=== PATIENT | female | born 1960 | race Caucasian/White ===

== ENCOUNTER 2017-02-21 19:30 | Emergency (ER) | payer OTHER ==
[2017-02-21] MEDS ORDERED: HYDROcodone/Acetaminophen 10/325 mg Tablet ONE (19:57)
[2017-02-21] MEDS ORDERED: Ibuprofen 200 MG TAB ONE (19:58)
--- NOTE | 2017-02-21 21:35 | RAD ---
RIGHT FOOT THREE VIEWS 02/21/17 No acute fracture was seen. The proximal phalanx of the fifth toe is underdeveloped and is very smal l. There may be a very tiny calcaneal spur forming. IMPRESSION: No acute finding. POS: HOME
== END 2017-02-21 20:40 | disposition home or self-care (01) ==
LOC: BURERS 19:30
DX: S93.601A Unspecified sprain of right foot, initial encounter (principal); E78.5 Hyperlipidemia, unspecified; F32.9 Major depressive disorder, single episode, unspecified; F17.210 Nicotine dependence, cigarettes, uncomplicated; W19.XXXA Unspecified fall, initial encounter

== ENCOUNTER 2017-09-29 06:47 | Emergency (ER) | payer OTHER, SELFPAY ==
[2017-09-29] MEDS ORDERED: Adacel (T-DAP) 0.5 ML VIAL ONE (07:24)
--- NOTE | 2017-09-29 08:12 | CT ---
CT OF THE LUMBAR SPINE WITHOUT IV CONTRAST: INDICATION: A 57-year-old female that fell from standing. The patient fell back from a cabinet landing on her bu ttocks and hitting the back of her head this morning. COMPARISON: None. FINDINGS: There are changes of a bilateral pars defect at L5 which is likely chronic. This is seen most eviden t on the left at the L5 pars interarticularis. The right pars likely has a spondylolysis on image 14 of the sagittal series. There is increased sclerosis at this site likely related to some pars react ion. There is prominent left and right L4-5 and L5-S1 facet joint degenerative change. There is a p rominent marginal osteophyte seen affecting particularly the left L4-5 facet complex. The vertebral body heights and spinal alignment are preserved and no acute fracture or subluxation is evident. The re are mild vascular calcifications involving the abdominal aorta. No lymphadenopathy is evident. T he posterior aspects of the lungs appear within normal limits. SI joints appear within normal limits for age. There are some mild degenerative changes involving the left SI joint. IMPRESSION: 1. No definite acute fracture or subluxation demonstrated. 2. Bilateral pars defects at L5 without spondylolisthesis. 3. Advanced facet osteoarthritic change at L4-5. Moderate facet osteoarthritic change at L5-S1. 4. Vertebral body heights appear preserved. POS: [facility]
== END 2017-09-29 08:15 | disposition home or self-care (01) ==
LOC: BURERS 06:47
DX: S33.5XXA Sprain of ligaments of lumbar spine, initial encounter (principal); S00.03XA Contusion of scalp, initial encounter; E78.5 Hyperlipidemia, unspecified; F17.210 Nicotine dependence, cigarettes, uncomplicated; W17.89XA Other fall from one level to another, initial encounter
CPT/HCPCS: 72131; 90471; 90715

== ENCOUNTER 2017-11-25 17:56 | Emergency (ER) | payer SELFPAY ==
[2017-11-25] MEDS ORDERED: Fluconazole 100 MG TAB ONE (18:21)
[2017-11-25] MEDS ORDERED: metroNIDAZOLE 250 MG TAB ONE (18:21)
[2017-11-25] MEDS ORDERED: Azithromycin 250 MG TAB ONE (18:30)
[2017-11-25] MEDS ORDERED: Lidocaine 1% 20 ML MDV ONE (18:30)
[2017-11-25] MEDS ORDERED: cefTRIAXone\\ROCEPHIN 500 MG VIAL ONE (18:30)
[2017-11-28 21:56] LABS: Chlamydia by PCR Not Detected (NotDetected); GC by PCR Not Detected (NotDetected)
== END 2017-11-25 18:45 | disposition home or self-care (01) ==
LOC: BURERS 17:56
DX: N76.0 Acute vaginitis (principal); E78.5 Hyperlipidemia, unspecified; F17.210 Nicotine dependence, cigarettes, uncomplicated
CPT/HCPCS: 87480; 87491; 87510; 87591; 87660; 96372; J0696; J2001

== ENCOUNTER 2019-04-13 18:07 | Emergency (ER) | payer SELFPAY ==
[2019-04-13] MEDS ORDERED: Ibuprofen 200 MG TAB ONE (18:18)
== END 2019-04-13 18:21 | disposition home or self-care (01) ==
LOC: BURERS 18:07
DX: M62.830 Muscle spasm of back (principal); E78.5 Hyperlipidemia, unspecified; F17.210 Nicotine dependence, cigarettes, uncomplicated
CPT/HCPCS: 99283